=== PATIENT | male | born 1960 | race Caucasian/White ===

== ENCOUNTER 2020-03-02 10:43 | Emergency (ER) | payer MEDICAID, OTHER ==
[~2020-03-02] VITALS: Ht 180.3 cm; Wt 87.7 kg
[2020-03-02] MEDS ORDERED: HYDROcodone/acetaminophen 5mg/325mg tablet PO ONE (11:35)
[2020-03-02] MEDS ORDERED: ondansetron 4mg rapidly disintigrating tab PO ONE (11:35)
--- NOTE | 2020-03-02 11:54 | NUR ---
TO CT VIA WC
[2020-03-02] MEDS ORDERED: IBUP-1984 PO (12:29)
[2020-03-02 13:31] VITALS: BP 138/105
== END 2020-03-02 13:29 | disposition home or self-care (01) ==
LOC: ER 10:44
DX: S70.211A Abrasion, right hip, initial encounter (principal); S30.811A Abrasion of abdominal wall, initial encounter; F17.200 Nicotine dependence, unspecified, uncomplicated; Z86.19 Personal history of other infectious and parasitic diseases; Z79.899 Other long term (current) drug therapy; X58.XXXA Exposure to other specified factors, initial encounter; Y93.89 Activity, other specified; Y92.89 Other specified places as the place of occurrence of the external cause; Y99.8 Other external cause status
CPT/HCPCS: 74176; 99284

== ENCOUNTER 2020-05-03 09:58 | Emergency (ER) | payer OTHER | END 2020-05-03 10:41 | disposition left against medical advice (07) | LOC: ER 09:58 | DX: R05 Cough (principal); Z53.21 Procedure and treatment not carried out due to patient leaving prior to being seen by health care provider ==